=== PATIENT | male | born 1995 | race Two or more races ===

== ENCOUNTER 2018-08-12 14:52 | Emergency (ER) | payer OTHER ==
[~2018-08-12] VITALS: Ht 175.3 cm; Wt 76.5 kg
[2018-08-12 15:30] VITALS: BP 132/81
--- NOTE | 2018-08-12 15:31 | RAD ---
Sternum, 2 views, 08/12/2018: HISTORY: Injury No fracture is identified. The retrosternal soft tissues are unremarkable. CT imaging is a more sensitive method of evaluation, if clinically indicated. IMPRESSION: No acute bony abnormality is detected. Electronically signed by: Adal Calderon MD (08/12/2018 3:27 PM) [facility]
[2018-08-12] MEDS ORDERED: IBUP800T19 PO (15:48)
[2018-08-12] MEDS ORDERED: CYCL-331 PO (15:48)
--- NOTE | 2018-08-12 15:49 | PHYS DOC ---
Past History Past Medical History: Other Past Surgical History: No Surgical History Alcohol Use: Occasionally Drug Use: None Adult General Chief Complaint Chief Complaint: BACK PAIN OR INJURY [facility] HPI Patient is a 22 year old male who presents with complaining of low back pain. Patient states he was playing basketball yesterday and somebody injured him in his chest with his elbow and it causes a constant pain that getting force with movement. Patient states he had has history of chronic low back pain for 3 years that getting better and worse off and on as a muscle pain. Patient complaining of low back pain since yesterday because of sternal pain. Patient rated his pain 8/10 and denies focal neuro deficit, fever and chills, nausea and vomiting. Review of Systems Review of Systems Constitutional: Denies fever or chills [] Eyes: Denies change in visual acuity, redness, or eye pain [] HENT: Denies nasal congestion or sore throat [] Respiratory: Denies cough or shortness of breath [] Cardiovascular: No additional information not addressed in HPI [] GI: Denies abdominal pain, nausea, vomiting, bloody stools or diarrhea [] : Denies dysuria or hematuria [] Musculoskeletal: Reports back pain Integument: Denies rash or skin lesions [] Neurologic: Denies headache, focal weakness or sensory changes [] Endocrine: Denies polyuria or polydipsia [] All other systems were reviewed and found to be within normal limits, except as documented in this note. Allergies Allergies Allergies Coded Allergies Type Severity Reaction Last Updated Verified No Known Drug Allergies 08/12/18 No Physical Exam Physical Exam Constitutional: Well developed, well nourished, no acute distress, non-toxic appearance. [] HENT: Normocephalic, atraumatic, bilateral external ears normal, oropharynx moist, no oral exudates, nose normal. [] Eyes: PERRLA, EOMI, conjunctiva normal, no discharge. [] Neck: Normal range of motion, no tenderness, supple, no stridor. [] Cardiovascular:Heart rate regular rhythm, no murmur [] Lungs & Thorax: Bilateral breath sounds clear to auscultation, mild substernal Abdomen: Bowel sounds normal, soft, no tenderness, no masses, no pulsatile masses. [] Skin: Warm, dry, no erythema, no rash. [] Back: No tenderness, no CVA tenderness, no midline tenderness[] Extremities: No tenderness, no cyanosis, no clubbing, ROM intact, no edema. [] Neurologic: Alert and oriented X 3, normal motor function, normal sensory function, no focal deficits noted. [] Psychologic: Affect normal, judgement normal, mood normal. [] Current Patient Data Vital Signs Vital Signs Date Time Temp Pulse Resp B/P (MAP) Pulse Ox O2 Delivery O2 Flow Rate FiO2 08/12/18 14:52 97.7 65 16 99 Room Air EKG EKG [] Radiology/Procedures Radiology/Procedures [address] [address] IMAGING REPORT Signed PATIENT: JULES MATHEWS ACCOUNT: [id number] : 1995 LOCATION: ER AGE: 22 SEX: M EXAM STATUS: REG ER ORD. PHYSICIAN: ELLIS MEZA MD REASON: injury PROCEDURE: STERNUM 2+V Sternum, 2 views, 08/12/2018: HISTORY: Injury No fracture is identified. The retrosternal soft tissues are unremarkable. CT imaging is a more sensitive method of evaluation, if clinically indicated. IMPRESSION: No acute bony abnormality is detected. Electronically signed by: Adal Calderon MD (08/12/2018 3:27 PM) [facility] DICTATED AND SIGNED BY: ADAL CALDERON MD DATE: 08/12/18 1525 CC: MAURO MATAMOROS PA-C; ELLIS MEZA MD ~ Course & Med Decision Making Course & Med Decision Making discharge: I've spoken with the patient and/or caregivers. I've explained the patient's condition, diagnosis and treatment plan based on information available to me at this time. I've answered the patient's and/or caregivers questions and addressed any concerns. The patient and/or caregivers have a good understanding the patient's diagnosis, condition and treatment plan as can be expected at this point. Vital signs have been stabilized. The patient's condition is stable for discharge from the emergency department. The patient will pursue further outpatient evaluation with her primary care provider or other designated consulting physician as outlined in the discharge instructions. Patient and/or caregivers are agreeable to this plan of care and follow-up instructions have been explained in detail. The patient and/or caregivers have received these instructions in written format and expressed understanding of these discharge instructions. The patient and her caregivers are aware that if any significant change in condition or worsening of symptoms should prompt him to immediately return to this of the closest emergency department. If an emergent department is not readily available I would encourage him to call 911. Dragon Disclaimer Dragon Disclaimer This electronic medical record was generated, in whole or in part, using a voice recognition dictation system. Departure Departure: Impression: Primary Impression: Sternal contusion Additional Impression: Lumbosacral strain Disposition: HOME, SELF-CARE (At 1545) Condition: STABLE Referrals: MAURO MATAMOROS PA-C (PCP) Patient Instructions: Chest Contusion, Lumbosacral Strain Additional Instructions: Apply ice on the affected area Follow-up with your primary care physician in 3-5 days Return to ER if not getting better Scripts Ibuprofen (IBUPROFEN) 800 Mg Tablet 800 MG PO TID PRN for PAIN, #30 TAB Prov: ELLIS MEZA MD 08/12/18 Cyclobenzaprine Hcl (CYCLOBENZAPRINE HCL) 10 Mg Tablet 1 TAB PO TID, #30 TAB Prov: ELLIS MEZA MD 08/12/18 Problem Qualifiers ELLIS MEZA MD Aug 12, 2018 15:49
== END 2018-08-12 15:52 | disposition home or self-care (01) ==
LOC: ER 14:52
DX: S39.012A Strain of muscle, fascia and tendon of lower back, initial encounter (principal); S20.219A Contusion of unspecified front wall of thorax, initial encounter; W50.0XXA Accidental hit or strike by another person, initial encounter; Y93.67 Activity, basketball; Y92.89 Other specified places as the place of occurrence of the external cause; Y99.8 Other external cause status
CPT/HCPCS: 71120; 99284

== ENCOUNTER 2018-08-21 17:54 | Emergency (ER) | payer OTHER ==
[~2018-08-21] VITALS: Ht 175.3 cm; Wt 76.5 kg
[~2018-08-21 17:54] MED LIST: CYCL-331 PO; IBUP800T19 PO
[2018-08-21] MEDS ORDERED: IV NORMAL SALINE 1,000ML 1,000 ML IV ONE (18:15)
[2018-08-21] MEDS ORDERED: ASPIRIN 81 MG TAB.CHEW PO ONE (18:15)
--- NOTE | 2018-08-21 18:18 | PHYS DOC ---
Past History Past Medical History: Other Past Surgical History: No Surgical History Alcohol Use: Occasionally Drug Use: None Adult General Chief Complaint Chief Complaint: CHEST PAIN HPI HPI 22-year-old male presents with central chest pain. Patient states that this started 1 hour ago after having sexual intercourse. He comes in because the pain has not gone away. He rates it a 6 out of 10 and describes as a heavy pressure. He has some shortness of breath with the pain. He denies diaphoresis or cough. The patient had this happen once before couple weeks ago with a running 400m sprints. The pain lasted for an unknown amount of time but then faded away without intervention. The patient was not evaluated at that time. The patient is concerned because he has an uncle who had a first heart attack at 26. Patient denies any cocaine or methamphetamine use. He has been on Sudafed lately for allergy symptoms. He denies fever or chills. Review of Systems Review of Systems Constitutional: Denies fever or chills [] Eyes: Denies change in visual acuity, redness, or eye pain [] HENT: Denies nasal congestion or sore throat [] Respiratory: Denies cough or shortness of breath [] Cardiovascular: No additional information not addressed in HPI [] GI: Denies abdominal pain, nausea, vomiting, bloody stools or diarrhea [] : Denies dysuria or hematuria [] Musculoskeletal: Denies back pain or joint pain [] Integument: Denies rash or skin lesions [] Neurologic: Denies headache, focal weakness or sensory changes [] Endocrine: Denies polyuria or polydipsia [] All other systems were reviewed and found to be within normal limits, except as documented in this note. Allergies Allergies Allergies Coded Allergies Type Severity Reaction Last Updated Verified No Known Drug Allergies 08/12/18 No Physical Exam Physical Exam Constitutional: Well developed, well nourished, no acute distress, non-toxic appearance. [] HENT: Normocephalic, atraumatic, bilateral external ears normal, oropharynx moist, no oral exudates, nose normal. [] Eyes: PERRLA, EOMI, conjunctiva normal, no discharge. [] Neck: Normal range of motion, no tenderness, supple, no stridor. [] Cardiovascular:Heart rate regular rhythm, grade 1/6 systolic ejection murmur [] Lungs & Thorax: Bilateral breath sounds clear to auscultation [] Abdomen: Bowel sounds normal, soft, no tenderness, no masses, no pulsatile masses. [] Skin: Warm, dry, no erythema, no rash. [] Back: No tenderness, no CVA tenderness. [] Extremities: No tenderness, no cyanosis, no clubbing, ROM intact, no edema. [] Neurologic: Alert and oriented X 3, normal motor function, normal sensory function, no focal deficits noted. [] Psychologic: Affect concerned, judgement normal, mood normal. [] EKG EKG Sinus rhythm, rate 88, normal axis, no ST elevations or depressions.[] Radiology/Procedures Radiology/Procedures [] Impressions: CHEST AP ONLY History: Chest pain, left sided neck pain, short of air today Comparison: None. Findings: Single view of the chest is submitted. There is no infiltrate, pneumothorax, or effusion. The pericardial cardiac silhouette is within normal limits in size. Impression: 1. There is no evidence of acute cardiopulmonary disease. Electronically signed by: Stephie Borden MD (08/21/2018 6:32 PM) [facility] DICTATED AND SIGNED BY: STEPHIE BORDEN MD DATE: 08/21/181831 CC: DARLIN ALONSO DO; MAURO MATAMOROS PA-C Course & Med Decision Making Course & Med Decision Making Pertinent Labs and Imaging studies reviewed. (See chart for details) The patient's chest x-ray is unremarkable. His EKG this does not show any ST elevations. His labs are insignificant except for a troponin of 3.144. Lab repeated the test and it continued to be elevated. Patient was given 324 aspirin on arrival. His pain has improved without further intervention. I discussed the case with the needlemaker, Dr. Mace and he has requested heparin protocol to be started and the patient transferred to [facility]. Discussed the case with the hospitalist Dr. Wolf and she has accepted the patient for transfer. Dragon Disclaimer Dragon Disclaimer This electronic medical record was generated, in whole or in part, using a voice recognition dictation system. Departure Departure: Referrals: MAURO MATAMOROS PA-C (PCP) DARLIN ALONSO DO Aug 21, 2018 18:18
[2018-08-21 18:21] LABS: BASO % 1 % (0-3); EOS # 0.2 x10^3/uL (0.0-0.7); EOS % 4 % (0-3); HEMATOCRIT 44.1 % (39.0-53.0); HEMOGLOBIN 15.1 g/dL (13.0-17.5); LYMPH # 2.1 x10^3/uL (1.0-4.8); LYMPH % 32 % (24-48); MEAN CORPUSCULAR HEMOGLOBIN 29 pg (25-35); MEAN CORPUSCULAR HGB CONC 34 g/dL (31-37); MEAN CORPUSCULAR VOLUME 84 fL (79-100); MONO # 0.6 x10^3/uL (0.0-1.1); MONO % 9 % (0-9); NEUT # 3.5 x10^3uL (1.8-7.7); NEUT % 55 % (31-73); PLATELET COUNT 200 x10^3/uL (140-400); RED BLOOD COUNT 5.24 x10^6/uL (4.30-5.70); RED CELL DISTRIBUTION WIDTH 13.4 % (11.5-14.5); WHITE BLOOD COUNT 6.5 x10^3/uL (4.0-11.0)
--- NOTE | 2018-08-21 18:31 | EKG ---
[address] [address] Test Date: 2018-08-21 Test Time: 17:58:38 Pat Name: JULES MATHEWS Department: Room: Gender: [employer] Machine: : [id number] Requested By: DARLIN ALONSO Order Number: [id number] Reading MD: Epifanio Sousa MD Measurements Intervals [place] Rate: P: NE: QRS: QRSD: T: QT: QTc: Interpretive Statements SR Electronically Signed On 08-22-2018 9:19:44 CDT by Epifanio Sousa MD
--- NOTE | 2018-08-21 18:35 | RAD ---
CHEST AP ONLY History: Chest pain, left sided neck pain, short of air today Comparison: None. Findings: Single view of the chest is submitted. There is no infiltrate, pneumothorax, or effusion. The pericardial cardiac silhouette is within normal limits in size. Impression: 1. There is no evidence of acute cardiopulmonary disease. Electronically signed by: Louis Vasquez MD (08/21/2018 6:32 PM) [facility]
[2018-08-21 18:36] LABS: ALBUMIN 3.8 g/dL (3.4-5.0); CALCIUM 8.9 mg/dL (8.5-10.1); CREATININE 0.9 mg/dL (0.7-1.3); GFR 104.6; POTASSIUM 4.2 mmol/L (3.5-5.1); TOTAL BILIRUBIN 0.4 mg/dL (0.2-1.0); TOTAL PROTEIN 7.5 g/dL (6.4-8.2)
[2018-08-21] MEDS ORDERED: HEPARIN for IV BOLUS 10,000 UNIT/10 ML VIAL. IV ONE (19:00)
[2018-08-21] MEDS ORDERED: HEPARIN 25,000UTS/500ML PREMIX 500 ML IV PRN (19:00)
[2018-08-21] MEDS ORDERED: HEPARIN for IV BOLUS 10,000 UNIT/10 ML VIAL. IV PRN ×2 (19:00)
[2018-08-21 19:30] LABS: AMPHETAMINE/METHAMPHETAMINE NEG (NEG); BARBITURATES NEG (NEG); BENZODIAZEPINES NEG (NEG); CANNABINOIDS NEG (NEG); COCAINE NEG (NEG); METHADONE NEG (NEG); OPIATES NEG (NEG); PHENCYCLIDINE NEG (NEG)
[2018-08-21 19:31] VITALS: BP 125/80
== END 2018-08-21 19:45 | disposition short-term general hospital (02) ==
LOC: ER 17:54
DX: R07.89 Other chest pain (principal); R06.02 Shortness of breath; M54.2 Cervicalgia
CPT/HCPCS: 36415; 71045; 80053; 80307; 84484; 85025; 85610; 85730; 93005; 96365; 96375; 99285; J1644; G0479; J7030